=== PATIENT | male | born 1960 | race Caucasian/White ===

== ENCOUNTER → 2017-09-03 | Outpatient (CLI) | payer BC ==
[~2017-09-03] MED LIST: FEXO1TAB49 PO; FLVHFA44 INH; HYDRCRE28 TOP; OMAL150S SC; SNG10 PO; SRVDIN60 INH; THEO300T14 PO; VNTHFA/IN INH; [UNRECOGNIZED DRUG - REMARK] INJ
[2017-09-03 10:55] LABS: BASO % 0.9 %; BASO ABS # 0.05 K/uL (0-0.2); COMPLETE YES; EOS % 7.8 %; HEMATOCRIT 42.1 % (42-52); IG% 0.3 %; LYMPH % 20.1 %; LYMPH ABS # 1.18 K/uL (1.2-3.4); MEAN CELL VOLUME 94.6 fL (80-100); MEAN CORPUSCULAR HEMOGLOBIN 32.6 pg (25-34); MEAN CORPUSCULAR HGB CONC 34.4 g/dl (32-36); MEAN PLATELET VOLUME 10.1 fL (7.4-10.4); NEUT % 61.9 %; PLATELET COUNT 264 K/uL (130-400); RED BLOOD COUNT 4.45 M/uL (4.7-6.1); WHITE BLOOD COUNT 5.86 K/uL (4.8-10.8)
[2017-09-03 11:05] LABS: PROTHROMBIN TIME (PATIENT) 10.5 SECONDS (9.0-12.0)
== END | disposition home or self-care (01) ==
LOC: C.LAB1850 10:05
PROVIDERS: ATTEND Physician Assistant Medical
DX: R04.0 Epistaxis (principal)

== ENCOUNTER → 2017-09-22 | Day surgery (SDC) | payer BC, OTHER ==
[2017-09-01 11:03] VITALS: BMI 24.0
[~2017-09-22] VITALS: Ht 188 cm; Wt 84.1 kg
[~2017-09-22] MED LIST changes: +ATROPINE SULFATE 0.1 MG/ML 5ML SYR IV PRN; +EpHEDrine SULFATE INJ 50 MG/ML AMP IV PRN; +SODIUM CHLORIDE 0.9% 500ML 500 ML IV ONE
[2017-09-22 10:32] VITALS: Ht 188 cm; Wt 84.1 kg
--- NOTE | 2017-09-22 10:52 | Endo History and Physical ---
History & Physical Date of Service: Sep 22, 2017. Chief Complaint: History of colon polyps Referring Physician: Dr. Navarro History of Present Illness 57 yo CM who presents for colonoscopy secondary to history of colon polyps. Past Surgical History Hx Cardiac Surgery: No Hx Internal Defibrillator: No Hx Pacemaker: No Hx Abdominal Surgery: Yes (COLON RESECTION) Hx of Implantable Prosthesis: No Hx Post-Op Nausea and Vomiting: No Hx Cancer Surgery: No Hx Thoracic Surgery: No Hx Orthopedic: No Hx Urinary Tract Surgery: No Family History None Social History Smoking Status: Never Smoker Hx Substance Use: No Hx Alcohol Use: No Allergies Coded Allergies: NO KNOWN DRUG ALLERGIES (Verified Allergy, Unknown, ., 09/22/17) Molds and Smuts (Verified Adverse Reaction, Mild, MILD INTOLERANCE TO MOLD , 09/22/17) Current Medications Reported Home Medications Medications Dose Route/Sig Max Daily Dose Days Date Category Xolair (Omalizumab) 150 Mg Christianne 300 Mg SC Q4WK 09/01/17 Reported Ventolin Hfa (Albuterol) 200 Puffs/92789 Mcg Aers 2-4 Puffs INH Q6H PRN 09/01/17 Reported Juan Miguel-Dur Ext Rel (Theophylline) 300 Mg Tabcr 300 Mg PO QAM 09/01/17 Reported Serevent Diskus (Salmeterol Xinafoate) 50 Mcg Aerp 1 Puff INH QAM 09/01/17 Reported Proctozone-Hc (Hydrocortisone (Rectal)) 2.5 % Cre 1 Dose TOP BID PRN 09/01/17 Reported Montelukast Sodium (Montelukast Sod) 10 Mg Tab 1 Tab PO QPM 09/01/17 Reported Flovent Hfa (Fluticasone Propionate) 120 Puffs/5280 Mcg Aero 2 Puffs INH BID 09/01/17 Reported Caitlyn Allergy (Fexofenadine Hcl) 180 Mg Tab 1 Tab PO QAM 09/01/17 Reported [allergy injection] 1 Dose INJ MONTHLY 09/02/10 Reported Vital Signs Weight (Kilograms): 84.09 Height (Feet): 6 Height (Inches): 2 Physical Exam General Appearance: WD/WN, no apparent distress Respiratory/Chest: Auscultation: breath sounds normal Cardiovascular: Heart Auscultation: RRR Abdomen: Bowel Sounds: normal Inspection & Palpation: soft, non-distended, no tenderness, guarding & rebound Assessment and Plan Assessment: 57 yo CM who presents for colonoscopy secondary to history of colon polyps. Plan: Proceed with colonoscopy.
--- NOTE | 2017-09-22 12:19 | Anesthesiology Progress Note ---
Anesthesia Post Op Note Date & Time Sep 22, 2017 at 12:19 Vital Signs Vital Signs Past 12 Hours Date Time Temp Pulse Resp B/P (MAP) Pulse Ox O2 Delivery O2 Flow Rate FiO2 09/22/17 10:51 36.7 73 20 120/76 (91) 96 Room Air Notes Mental Status: alert / awake / arousable, participated in evaluation Pt Amnestic to Procedure: Yes Nausea / Vomiting: adequately controlled Pain: adequately controlled Airway Patency, RR, SpO2: stable & adequate BP & HR: stable & adequate Hydration State: stable & adequate Anesthetic Complications: no major complications apparent
--- NOTE | 2017-09-22 12:26 | Discharge Instructions ---
Endoscopy Patient Instructions Date / Procedure(s) Performed Sep 22, 2017. Colonoscopy Allergy Information Coded Allergies: NO KNOWN DRUG ALLERGIES (Verified Allergy, Unknown, ., 09/22/17) Molds and Smuts (Verified Adverse Reaction, Mild, MILD INTOLERANCE TO MOLD , 09/22/17) Discharge Date / Findings Sep 22, 2017. Diverticulosis Internal hemorrhoids History of partial colectomy with normal anastomosis Medication Instructions OK to resume all medications today as prescribed Reported Home Medications Medications Dose Route/Sig Max Daily Dose Days Date Category Xolair (Omalizumab) 150 Mg Christianne 300 Mg SC Q4WK 09/01/17 Reported Ventolin Hfa (Albuterol) 200 Puffs/48212 Mcg Aers 2-4 Puffs INH Q6H PRN 09/01/17 Reported Juan Miguel-Dur Ext Rel (Theophylline) 300 Mg Tabcr 300 Mg PO QAM 09/01/17 Reported Serevent Diskus (Salmeterol Xinafoate) 50 Mcg Aerp 1 Puff INH QAM 09/01/17 Reported Proctozone-Hc (Hydrocortisone (Rectal)) 2.5 % Cre 1 Dose TOP BID PRN 09/01/17 Reported Montelukast Sodium (Montelukast Sod) 10 Mg Tab 1 Tab PO QPM 09/01/17 Reported Flovent Hfa (Fluticasone Propionate) 120 Puffs/5280 Mcg Aero 2 Puffs INH BID 09/01/17 Reported Caitlyn Allergy (Fexofenadine Hcl) 180 Mg Tab 1 Tab PO QAM 09/01/17 Reported [allergy injection] 1 Dose INJ MONTHLY 09/02/10 Reported Provider Instructions Activity Restrictions - No exercising or heavy lifting for 24 hours. - Do not drink alcohol the day of the procedure. - Do not drive a car or operate machinery until the day after the procedure. - Do not make any important decisions or sign important papers in 24 hours after the procedure. Following Day: - Return to full activity which may include returning to work/school. Diet Start your diet with liquids and light foods (jello, soup, juice, toast). Then eat your usual diet if not nauseated. Treatment For Common After Affects For mild abdominal pain, bloating, or excessive gas: - Rest - Eat lightly - Lie on right side Follow-Up Information Follow-up with DR. SELBY as scheduled Anesthesia Information What You Should Know You have had a procedure that required some medicine to reduce anxiety and discomfort. This treatment is called moderate sedation. After receiving the treatment, you may be sleepy, but you will be able to breathe on your own. The effects of the treatment may last for several hours. Follow these instructions along with Activity/Diet recommendations noted above: * Do NOT do anything where dizziness or clumsiness would be dangerous. * Rest quietly at home today, then you can be up and about tomorrow. * Have a responsible person stay with you the rest of today. * You may have had an I.V. today. If so, you may take the dressing off later today. Recommendations Call your doctor if: * Trouble breathing * Continuous vomiting for more than 24 hours * Temperature above 101 degrees * Severe abdominal pain or bloating * Pain not relieved by pain medicine ordered * There is increased drainage or redness from any incision * A large amount of rectal bleeding greater than 2-3 tablespoons. (If you had a polyp/s removed or have hemorrhoids, a small amount of blood - from the rectum is to be expected.) * You have any unanswered questions or concerns. IN THE EVENT OF A SERIOUS EMERGENCY, GO TO THE NEAREST EMERGENCY ROOM Your discharge instructions were prepared by provider Willie Newberry. Patient Instructions Signature Page Dashawn Brooks Patient (or Guardian) Signature/Date: I have read and understand the instructions given to me by my caregivers. Caregiver/RN/Doctor Signature/Date: The above-named patient and/or guardian has received patient instructions on this date. + Original Patient Signature Page (only) stays with chart. Please make copy for patient.
--- NOTE | 2017-09-22 12:29 | GI REPORT ---
Procedure Date: 09/22/2017 10:45 AM Procedure: Colonoscopy Indications: High risk colon cancer surveillance: Personal history of colonic polyps Medicines: Monitored Anesthesia Care Complications: No immediate complications. Estimated Blood Loss: Estimated blood loss: none. Procedure: Pre-Anesthesia Assessment: - Prior to the procedure, a History and Physical was performed, and patient medications and allergies were reviewed. The patient's tolerance of previous anesthesia was also reviewed. The risks and benefits of the procedure and the sedation options and risks were discussed with the patient. All questions were answered, and informed consent was obtained. Prior Anticoagulants: The patient has taken no previous anticoagulant or antiplatelet agents. ASA Grade Assessment: II - A patient with mild systemic disease. After reviewing the risks and benefits, the patient was deemed in satisfactory condition to undergo the procedure. After I obtained informed consent, the scope was passed under direct vision. Throughout the procedure, the patient's blood pressure, pulse, and oxygen saturations were monitored continuously. The scope was introduced through the anus and advanced to the terminal ileum. The colonoscopy was performed without difficulty. The patient tolerated the procedure well. The quality of the bowel preparation was good. The terminal ileum, ileocecal valve, appendiceal orifice, and rectum were photographed. Findings: The perianal and digital rectal examinations were normal. There was evidence of a prior end-to-end colo-colonic anastomosis in the descending colon. This was patent. The anastomosis was traversed. A few small-mouthed diverticula were found in the descending colon. Non-bleeding internal hemorrhoids were found during retroflexion. The hemorrhoids were small. Impression: - Patent end-to-end colo-colonic anastomosis. - Diverticulosis in the descending colon. - Non-bleeding internal hemorrhoids. - No specimens collected. Recommendation: - Resume previous diet. - Continue present medications. - Repeat colonoscopy in 5 years for surveillance. - Return to primary care physician as previously scheduled. Willie Newberry, DO 09/22/2017 12:28:57 PM This report has been signed electronically. Note Initiated On: 09/22/2017 10:45 AM I attest to the content of the Intraoperative Record and orders documented therein, exceptions below
[2017-09-22 12:42] VITALS: BP 120/88; PULSE 66; O2SAT 98
== END | disposition home or self-care (01) ==
LOC: C.GI 10:19
PROVIDERS: ATTEND Internal Medicine
DX: Z12.11 Encounter for screening for malignant neoplasm of colon (principal); K57.30 Diverticulosis of large intestine without perforation or abscess without bleeding; K64.8 Other hemorrhoids; Z85.038 Personal history of other malignant neoplasm of large intestine; J45.909 Unspecified asthma, uncomplicated; Z90.89 Acquired absence of other organs

== ENCOUNTER → 2018-01-11 | Outpatient (CLI) | payer OTHER ==
[~2018-01-11] MED LIST changes: -ATROPINE SULFATE 0.1 MG/ML 5ML SYR IV PRN; -EpHEDrine SULFATE INJ 50 MG/ML AMP IV PRN; -SODIUM CHLORIDE 0.9% 500ML 500 ML IV ONE
[2018-01-11 09:27] LABS: BASO % 1.1 %; BASO ABS # 0.07 K/uL (0-0.2); EOS % 13.9 %; EOS ABS # 0.86 K/uL (0-0.5); HEMATOCRIT 44.2 % (42-52); HEMOGLOBIN 15.3 g/dL (14.0-18.0); IG# 0.04 K/uL (0.00-0.02); LYMPH % 20.3 %; LYMPH ABS # 1.25 K/uL (1.2-3.4); MEAN CELL VOLUME 93.6 fL (80-100); MEAN CORPUSCULAR HEMOGLOBIN 32.4 pg (25-34); MEAN CORPUSCULAR HGB CONC 34.6 g/dl (32-36); MEAN PLATELET VOLUME 10.5 fL (7.4-10.4); MONO % 9.6 %; MONO ABS # 0.59 K/uL (0.11-0.59); NEUT % 54.5 %; NEUT ABS # 3.36 K/uL (1.4-6.5); PLATELET COUNT 255 K/uL (130-400); RED CELL DISTRIBUTION WIDTH CV 12.8 % (11.5-14.5); RED CELL DISTRIBUTION WIDTH SD 44.5 fL (36.4-46.3); WHITE BLOOD COUNT 6.17 K/uL (4.8-10.8)
[2018-01-11 09:39] LABS: ALBUMIN 4.2 gm/dl (3.4-5.0); ALT/SGPT 23 U/L (12-78); AST/SGOT 16 U/L (15-37); BLOOD UREA NITROGEN 17 mg/dl (7-18); CALCIUM 9.1 mg/dl (8.5-10.1); CARBON DIOXIDE 30 mmol/L (21-32); CHOLESTEROL 193 mg/dl (0-200); CREATININE 1.02 mg/dl (0.60-1.40); GLUCOSE 88 mg/dl (70-99); POTASSIUM 4.2 mmol/L (3.5-5.1); SODIUM 141 mmol/L (136-145)
[2018-01-11 09:49] LABS: ALKALINE PHOSPHATASE 78 U/L (45-117); LDL CHOLESTEROL CALCULATED 110 mg/dl; TOTAL PROTEIN 7.7 gm/dl (6.4-8.2)
== END | disposition home or self-care (01) ==
LOC: C.LAB1850 07:45
PROVIDERS: ATTEND Internal Medicine Pulmonary Disease
DX: Z00.00 Encounter for general adult medical examination without abnormal findings (principal); J45.909 Unspecified asthma, uncomplicated; E78.5 Hyperlipidemia, unspecified; J30.9 Allergic rhinitis, unspecified; Z12.5 Encounter for screening for malignant neoplasm of prostate